=== PATIENT | female | born 1955 | race Caucasian/White ===

== ENCOUNTER 2021-12-07 06:25 | Day surgery (SDC) | payer OTHER ==
[2021-12-07] MEDS ORDERED: CLINDAMYCIN PHOSPHATE 900 MG in NA CHLORIDE 0.9% 50 ML IV SCH (06:30)
[2021-12-07] MEDS ORDERED: NA CHLORIDE 0.9% IV SCH (06:30)
[2021-12-07] MEDS ORDERED: CEFAZOLIN 1 GM in NA CHLORIDE 0.9% 50 ML IVPB SCH (06:30)
[2021-12-07] MEDS ORDERED: CLINDAMYCIN PHOSPHATE IV SCH (06:30)
[2021-12-07] MEDS ORDERED: Ringers Lactate 1,000 ML IV ONE (06:51)
[2021-12-07] MEDS ORDERED: MIDAZOLAM HCL 2 MG/2 ML INJ ONE (07:10)
[2021-12-07] MEDS ORDERED: propofoL 200 MG/20 ML VIAL IV ONE (07:10)
[2021-12-07] MEDS ORDERED: FENTANYL CITR 100 MCG/2 ML ONE (07:10)
[2021-12-07] MEDS ORDERED: LIDOCAINE 2% MPF 5 ML VIAL ONE (07:11)
[2021-12-07] MEDS ORDERED: ONDANSETRON 4 MG/2 ML VIAL ONE (07:11)
[2021-12-07] MEDS ORDERED: dexAMETHasone 10 MG/ML VIAL ONE (07:11)
--- NOTE | 2021-12-07 07:47 | EKG ---
Test Date: 2021-12-06 Test Time: 13:13:10 Flat Breakdown Processor: YASMINE MEASUREMENT RESULTS: Intervals: Rate: 66 TX: 166 QRSD: 60 QT: 414 QTc: 434 [place]: P: -9 TX: 166 QRS: 37 T: 57 INTERPRETIVE STATEMENTS: Normal sinus rhythm Low voltage QRS Borderline ECG Compared to ECG 09/29/2007 23:05:26 Low QRS voltage now present Electronically Signed On 12-07-21 07:46:06 CDT by Abram Thompson
[2021-12-07] MEDS: LIDOCAINE 1% W/EPI 1:100,000 10 ML VIAL ONE ×2 (08:03→08:14)
[2021-12-07] MEDS ORDERED: EPHEDRINE SULF 50 MG/ML VIAL ONE (08:11)
[2021-12-07] MEDS: BUPIVACAINE 0.5% PF 10 ML VIAL ONE ×2 (08:14→08:30)
[2021-12-07] MEDS ORDERED: KETOROLAC 30 MG/ML INJ ONE (08:49)
--- NOTE | 2021-12-07 08:52 | P.BOP ---
Preoperative diagnosis: NUB R ear Postoperative diagnosis: Dilated Pore of Pamela Primary procedure: Excision benign skin lesion, path pending Secondary procedure: full thickness skin graft Bedspread Cutter Hand: NONE,NONE Estimated blood loss: 5ml Specimen: right external ear Findings: EUA consistant with dilated pore of Pamela Anesthesia: General Complications: None Implants: none Fluids & blood products: crystalloid 400ml Transferred to: Recovery Room Condition: Good
[2021-12-07] MEDS: HYDROMORPHONE HCL 1 MG/ML INJ ONE ×2 (09:06→09:12)
[2021-12-07 09:38] VITALS: BP 126/54; TEMP 97.1; O2SAT 96
--- NOTE | 2021-12-07 11:51 | P.OP ---
Commutator Inspector: NONE,NONE Preoperative diagnosis: Neoplasm uncertain behavior, skin right ear Postoperative diagnosis: Dilated pore of Pamela Primary procedure: Excision benign skin lesion, path pending Secondary procedure: full thickness skin graft Anesthesia: General via LMA Estimated blood loss: 5 mL Specimen: Right ear helix Findings: EUA consistant with dilated pore of Pamela Operative Technique: The patient was brought to the operating room. She is placed under general anesthesia via LMA. The skin of the ear, face, and neck on the right side was cleaned and prepped with Betadine and draped in a sterile fashion. Examination of the ear under anesthesia allowed increased visualization and manipulation. There was an area of darkness in the center of the raised 1 cm region, located on the scapha of the right external ear. Office examination was suggestive of some crusting overlying an ulceration with clinical suspicion for a rapidly growing malignancy. However during this examination I was able to carefully elevate part of this dark area and the clinical diagnosis was more suggestive of a dilated pore of Pamela. Based on the size, proceeding with excision and reconstruction of the area was indicated in light of the patient's significant pain and rapid growth. The area around the lesion was injected with 1% lidocai ne with epinephrine. The forceps were used to debride portion of the contents of the dilated pore. The skin overlying this dilated patient portion was extremely thin and resection was indicated. A 15 blade scalpel and needlepoint Bovie electrocautery were used to excise the area without significant margin and the skin specimen was sent to pathology for permanent section only. The edges of the wound were carefully cleaned from some granulated appearing tissue. The defect was 1.2 x 0.9 cm and included full-thickness of the skin with exposure of the perichondrium and a small area of exposed cartilage. The skin around the area was undermined but there was not sufficient skin to allow for primary closure. After careful examination of the surrounding area, decision was made to use a full-thickness skin graft from the preauricular crease. The planned excision area was injected with 0.5% plain Marcaine and a 1.1 x 2.5 vertical fusiform excision was made. A full-thickness skin graft was harvested and set aside. The donor site was treated with needlepoint electrocautery to achieve hemostasis and the skin edges were elevated approximately 1 cm anteriorly and about 3 to 5 mm posteriorly with elevation limited by the anatomy of the ear. The donor site was then closed in a primary fashion using running 5-0 fast absorbing gut. The skin graft was then cut to the appropriate size and applied to the scapha of the right ear. The graft was secured using four-point interrupted 3-0 silk sutures at 12, 3, 6, and 9:00. A Xeroform gauze was formed into an appropriate size bolster and was applied to the site, and was secured using the silk sutures. The surgical area was cleaned and dried. A small amount of triple antibiotic ointment was applied to the right preauricular incision/donor site. The patient was then returned to anesthesia for awakening and extubation in the operating room which proceeded without difficulty. Complications: None Implants: None Fluids & blood products: See anesthesia record Transferred to: Recovery Room Condition: Good
== END 2021-12-07 10:10 | disposition home or self-care (01) ==
LOC: OR 06:25
PROVIDERS: ATTEND Otolaryngology
PROC: 0JB00ZZ Excision of Scalp Subcutaneous Tissue and Fascia, Open Approach (ICD-10-PCS; principal; 2021-12-07 07:45)
DX: C44.222 Squamous cell carcinoma of skin of right ear and external auricular canal (principal); Z20.822 Contact with and (suspected) exposure to COVID-19
CPT/HCPCS: 93005; 88305; 11642; 15260; U0003; J2704; J2250; J3010; J1100; J1170; J7120; J2405; S0077

== ENCOUNTER 2022-12-30 07:31 | Day surgery (SDC) | payer OTHER ==
[2022-12-30 08:21] LABS: Absolute Lymphocytes (CBC) 1.4 K/uL (0.7-4.9); Hematocrit 43.8 % (36.0-45.0); Lymphocytes % 28.5 % (15.3-44.8); MCV 96.5 fL (80-100); MPV 8.6 fL (7.6-11.3); RBC Red Blood Cell Count 4.54 M/uL (3.86-4.86)
[2022-12-30 08:33] LABS: Potassium 3.7 mEq/L (3.5-5.1)
[2022-12-30] MEDS ORDERED: Ringers Lactate 1,000 ML IV ONE (08:40)
[2022-12-30] MEDS ORDERED: CEFAZOLIN SODIUM 1 GM/VIAL ONE (08:40)
--- NOTE | 2022-12-30 08:40 | RAD REPORT ---
EXAM DESCRIPTION: RAD - Chest Pa And Lat (2 Views) - 12/30/2022 8:33 am CLINICAL HISTORY: PREPROCEDURE SCREENING COMPARISON: CHEST PA AND LAT 2 VIEW dated 03/31/2012; CHEST PA AND LAT 2 VIEW dated 09/17/2010 FINDINGS: Lines: None. Lungs: No evidence of edema or pneumonia. Pleural: No significant pleural effusions or pneumothorax. Cardiac: The heart size is within normal limits. Mediastinum: Within normal limits. Bones: No acute fractures. Other: None IMPRESSION: No acute cardiopulmonary disease.
[2022-12-30] MEDS ORDERED: SCOPOLAMINE HYDROBROMIDE PATCH TD ONE (09:35)
[2022-12-30] MEDS ORDERED: BACITRACIN OINTMENT 14 GM TUBE TOP ONE (09:38)
[2022-12-30] MEDS ORDERED: LIDOCAINE 1% W/EPI 1:100,000 10 ML VIAL ONE (09:38)
[2022-12-30] MEDS ORDERED: MIDAZOLAM HCL 2 MG/2 ML INJ ONE (10:02)
[2022-12-30] MEDS ORDERED: LIDOCAINE 2% MPF 5 ML VIAL ONE (10:02)
[2022-12-30] MEDS ORDERED: propofoL 200 MG/20 ML VIAL IV ONE (10:02)
[2022-12-30] MEDS ORDERED: ONDANSETRON 4 MG/2 ML VIAL ONE (10:02)
[2022-12-30] MEDS ORDERED: FENTANYL CITR 100 MCG/2 ML ONE (10:02)
[2022-12-30] MEDS ORDERED: TRAMADOL HCL 50 MG TAB PO ONE (11:23)
[2022-12-30 11:27] VITALS: O2SAT 99
[2022-12-30] MEDS ORDERED: KETOROLAC 30 MG/ML INJ ONE (11:48)
--- NOTE | 2022-12-30 12:37 | EKG ---
Test Date: 2022-12-30 Test Time: 08:14:43 Cloth Printing Inspector: MAXI MEASUREMENT RESULTS: Intervals: Rate: 66 AR: 180 QRSD: 66 QT: 412 QTc: 431 [place]: P: 71 AR: 180 QRS: 20 T: 66 INTERPRETIVE STATEMENTS: Normal sinus rhythm with sinus arrhythmia Low voltage QRS Cannot rule out Anterior infarct, age undetermined Abnormal ECG Compared to ECG 12/06/2021 13:13:10 Myocardial infarct finding now present Electronically Signed On 12-30-22 12:36:59 CDT by Abram Thompson
[2022-12-30 12:49] VITALS: BP 132/58; TEMP 98.5
--- NOTE | 2023-01-01 10:29 | P.BOP ---
Preoperative diagnosis: hyperpigmentated ulcerated parietal scalp mass 2.5cm x 2.5 cm Postoperative diagnosis: same Primary procedure: Excisional biopsy of hyperpigmentated ulcerated parietal scalp mass Secondary procedure: 2.5cm x 2.5 cm Marine Equipment Sales Engineer: AMAURY BAILEY (INTERVENTIONAL NEURORADIOLOGIST) Estimated blood loss: <10cc Specimen: mass Findings: mass Anesthesia: General Complications: None Transferred to: Recovery Room Condition: Good
--- NOTE | 2023-01-01 14:12 | EKG ---
Test Date: 2022-12-30 Test Time: 08:15:27 Imaging Science Professor: MAXI MEASUREMENT RESULTS: Intervals: Rate: 69 ME: 194 QRSD: 58 QT: 400 QTc: 428 [place]: P: 68 ME: 194 QRS: 21 T: 62 INTERPRETIVE STATEMENTS: Normal sinus rhythm Low voltage QRS Cannot rule out Anteroseptal infarct, age undetermined Abnormal ECG Compared to ECG 12/30/2022 08:14:43 Sinus arrhythmia no longer present Myocardial infarct finding still present Electronically Signed On 01-01-23 14:09:24 CDT by Pedro Bustillo
--- NOTE | 2023-01-01 18:03 | DS ---
Date of Discharge: 12/30/2022 Diagnosis: Hyperpigmented ulcerated parietal scalp subcutaneous mass 2.5 cm. Procedure: Excisional biopsy of hyperpigmented subcutaneous ulcerated parietal scalp mass. Disposition: Home. Activity: As tolerated. No heavy lifting. Plan: Follow up in my office in 1 week. Call for appointment at [phone]. Keep area dry until she see us once again. Keep area dry for 48 hours and then follow up in office in a week. MANUEL/DWAYNE Voice ID: [id number] Report ID: [id number]
--- NOTE | 2023-01-01 18:03 | OP ---
Date of Procedure: 12/30/2022 Surgeon: Davi Maldonado MD Materials Handling Coordinator: Carolin Polo. Preoperative Diagnosis: Hyperpigmented ulcerated parietal scalp mass 2.5 cm x 2.5 cm. Postoperative Diagnosis: Hyperpigmented ulcerated parietal scalp mass 2.5 cm x 2.5 cm. Procedure: Excisional biopsy of hyperpigmented ulcerated parietal scalp mass, 2.5 cm x 2.5 cm Specimen: Mass. Anesthesia: General plus local. Complications: None. Indication: This is the case of a female, who comes to us with a parietal mass going to the scalp ar ea and going to the skin causing some alopecia, some ulceration, and concern for cancer. The primary doctor and the patient want that excised, so benefits, alternatives and risks of excision fully expl ained, which include, but not limited to infection, bleeding, damage to adjacent structures, anesthes ia complication, recurrence, PR, and even . She also understands risks of alopecia and also und erstands that we might not be able to close the defect completely due to how large area that is in th at location. She understood, signed a consent. The area was marked by me and the patient in the hol ding room. Procedure In Detail: The patient was brought to the operating room, placed in supine position. Anes thesia was done without complication. Scalp area was prepped and draped in the usual sterile fashion . A wedge incision was made in the skin include gross negative margins. The incision was carried al l the way down to the galea of the scalp region. The mass was completely excised. The area was irri gated. Hemostasis was obtained. Then, we proceeded to close it by combination of a 2-0 nylon in a f [id number] fashion and suture mattress fashion. The patient tolerated the procedure well. The p atient was sent to recovery in stable condition. MANUEL/DWAYNE Voice ID: [id number] Report ID: [id number]
== END 2022-12-30 12:43 | disposition home or self-care (01) ==
LOC: OR 07:31 → EDBD 10:45 → OR 12:43
PROVIDERS: ATTEND Surgery
PROC: 0HB0XZZ Excision of Scalp Skin, External Approach (ICD-10-PCS; principal; 2022-12-30 10:45)
DX: L82.1 Other seborrheic keratosis (principal)
CPT/HCPCS: 93005; 85025; 80048; 36415; 88305; 71046; 11423; J2704; J2001; J2250; J3010; J2405; J7120; J0690

== ENCOUNTER 2023-01-14 09:39 | Emergency (ER) | payer OTHER ==
--- OUTSIDE RECORDS SUMMARY | 2023-01-14 09:42 | XMS REPORT | Continuity of Care Document ---
:1955 Author Organization [facility] t Address [address] [place] [address] Care Team Providers Name Role Phone Gilbert Thakkar Primary Care Physician Miladis Almanza MD Attending Clinician Nurse, [facility] Attending Clinician Unavailable Doctor Unassigned, [place] Attending Clinician Unavailable Payers Payer Name Policy Type Policy Number Effective Date Expiration Date S ource Problems Condition Condition Condition Status Onset Resolution Last Treating Co mments Source Name Details Category Date Date Treatment Clinician Date Dysuria Dysuria Disease Active Overview: Univ ers 6-10 Formattin ity of 00:00: g of this note Medical might be Branch different from the original. Nurse visit Hypothyroi Hypothyroi Disease Active U nivers d d 3-11 ity of 00:00: Medical Branch Generalize Generalize Disease Active U nivers d anxiety d anxiety 3-11 ity of disorder disorder 00:00: [place] 00 Medical Branch Allergies, Adverse Reactions, Alerts Allergy Allergy Status Severity Reaction(s) Onset Inactive Treating Comm ents Source Name Type Date Date Clinician Julissa Gibbons Active Palpitations Excessiv e Univers ty to 3-11 sweating, ity of adverse 00:00: feels [place] reaction 00 like Medical s she's Branch going to pass out Social History Social Habit Start Date Stop Date Quantity Comments Source History of tobacco Cigarette Smoker University of use [place] [facility] History [facility] University o f Alcohol Frequency [place] M edical Branch History [facility] University o f Alcohol Std Drinks [place] [facility] History [facility] University o f Alcohol Binge [place] [facility] Exposure to 2022-01-29 2022-02-08 Not sure University SARS-CoV-2 (event) 00:00:00 14:31:00 [facility] Alcohol intake 2021-12-31 2021-12-31 Current drinker Unive rsity of 00:00:00 00:00:00 of alcohol [facility] [place] (finding) Branch Cigarettes smoked 2021-11-09 2021-11-09 Univers ity of current (pack per 00:00:00 00:00:00 [facility] ) - Reported Branch Cigarette 2021-11-09 2021-11-09 University of pack-years 00:00:00 00:00:00 [facility] Tobacco use and 2021-11-09 2021-11-09 Never used Universit y of exposure 00:00:00 00:00:00 [facility] Alcohol Comment 2021-11-09 2021-11-09 occational Universit y of 00:00:00 00:00:00 [facility] Sex [birth year] Universit y of 00:00:00 00:00:00 [facility] Smoking Status Start Date Stop Date Source Current every day smoker 2021-11-09 00:00:00 Uni versity of [facility] Medications Ordered Filled Start Stop Current Ordering Indication Dosage Frequency Signature Comments Components Source Medication Medication Date Date Medication? Clinician (SIG) Name Name sulfamethox 2021- No [id number] 1{tbl} Take 1 Univers azole-trime 6-13 06-21 tablet by it y oprim 00:00: 04:59 mouth 2 [place] 800-160 mg 00 :00 (two) Medical per tablet times Branch daily for 7 days. sulfamethox 2021- No [id number] 1{tbl} Take 1 Univers azole-trime 6-13 06-21 tablet by it y of oprim 00:00: 04:59 mouth 2 [place] 800-160 mg 00 :00 (two) Medical per tablet times Branch daily for 7 days. Mth-Me 2021- No [id number] 1{capsu Take 1 Univers Blue-Sod 6-10 07-11 le} capsule by ity of Phos-PhSal- 00:00: 04:59 [place] Hyo 00 :00 every 8 Medical (URIBEL) (eight) Branch 118-10-40.8 hours as -36 mg needed for capsule Other (bladder spasms) for up to 30 days. [facility] 2021- No [id number] 1{capsu Take 1 Univers Blue-Sod 6-10 07-11 le} capsule by ity of Phos-PhSal- 00:00: 04:59 [place] 00 :00 every 8 Medical (URIBEL) (eight) Branch 118-10-40.8 hours as -36 mg needed for capsule Other (bladder spasms) for up to 30 days. [facility] 2021- No [id number] 1{capsu Take 1 Univers Blue-Sod 6-10 07-11 le} capsule by ity of Phos-PhSal- 00:00: 04:59 [place] 00 :00 every 8 Medical (URIBEL) (eight) Branch 118-10-40.8 hours as -36 mg needed for capsule Other (bladder spasms) for up to 30 days. estradioL Yes [id number] Apply 1g Univers (ESTRACE) 3-11 vaginally ity o f 0.01 % (0.1 00:00: at bedtime [place] mg/gram) 00 every Medical vaginal night for Branch cream 2 weeks and then apply 1g vaginally at bedtime 3 times per week ( dn ida) estradioL Yes [id number] Apply 1g Univers (ESTRACE) 3-11 vaginally ity o f 0.01 % (0.1 00:00: at bedtime [place] mg/gram) 00 every Medical vaginal night for Branch cream 2 weeks and then apply 1g vaginally at bedtime 3 times per week ( dn ida) estradioL Yes [id number] Apply 1g Univers (ESTRACE) 3-11 vaginally ity o f 0.01 % (0.1 00:00: at bedtime [place] mg/gram) 00 every Medical vaginal night for Branch cream 2 weeks and then apply 1g vaginally at bedtime 3 times per week ( dn ida) ALPRAZolam Yes 1mg Take 1 mg Un yisel 1 mg tablet 2-20 by mouth ity of 00:00: at [place] [address] bedtime. Medical Branch ALPRAZolam Yes 1mg Take 1 mg Un yisel 1 mg tablet 2-20 by mouth ity of 00:00: at [place] [address] bedtime. Medical Branch ALPRAZolam Yes 1mg Take 1 mg Un yisel 1 mg tablet 2-20 by mouth ity of 00:00: at [place] [address] bedtime. Medical Branch nitrofurant Yes 100mg Take 100 U nivers oin 100 mg 2-09 mg by ity of capsule 00:00: mouth [place] 00 daily. Medical Branch nitrofurant 0 Yes 100mg Take 100 U nivers oin 100 mg 2-09 mg by ity of capsule 00:00: mouth [place] 00 daily. Medical Branch nitrofurant Yes 100mg Take 100 U nivers oin 100 mg 2-09 mg by ity of capsule 00:00: mouth [place] 00 daily. Medical Branch pravastatin Yes 40mg Take 40 mg Univers 40 mg 1-19 by mouth ity of tablet 00:00: every [place] 00 morning. Medical Branch pravastatin 0 Yes 40mg Take 40 mg Univers 40 mg 1-19 by mouth ity of tablet 00:00: every [place] 00 morning. Medical Branch pravastatin 0 Yes 40mg Take 40 mg Univers 40 mg 1-19 by mouth ity of tablet 00:00: every [place] 00 morning. Medical Branch levothyroxi Yes 25ug Take 25 Uni vers ne 25 mcg 1-12 mcg by ity of tablet 00:00: mouth [place] 00 every Medical morning. Branch levothyroxi Yes 25ug Take 25 Uni vers ne 25 mcg 1-12 mcg by ity of tablet 00:00: mouth [place] 00 every Medical morning. Branch levothyroxi 0 Yes 25ug Take 25 Uni vers ne 25 mcg 1-12 mcg by ity of tablet 00:00: mouth [place] 00 every Medical morning. Branch Vital Signs Vital Name Observation Time Observation Value Comments Source Body weight 2022-02-08 20:25:00 56.7 kg [facility] BMI 2022-02-08 20:25:00 24.41 kg/m2 [facility] Systolic blood 2022-02-08 20:25:00 108 mm[Hg] Univer sity of pressure [facility] Diastolic blood 2022-02-08 20:25:00 70 mm[Hg] Unive rsity of pressure [facility] Heart rate 2022-02-08 20:25:00 80 /min Universi ty [facility] Body temperature 2022-02-08 20:25:00 36.89 Yumiko [facility] Respiratory rate 2022-02-08 20:25:00 18 /min [facility] Body height 2022-02-08 20:25:00 152.4 cm Universi ty [facility] Procedures Procedure Date / Time Performed Performing Clinician Sourc e POCT URINALYSIS W/O 2022-02-08 00:00:00 Miladis Almanza [facility] SPECIFIC GRAVITY [facility] Encounters Start End Encounter Admission Attending Care Care Encounter Source Date/Time Date/Time Type Type Clinicians Facility Department ID 2022-02-11 2022-02-11 Refill [facility] [id number] Univers 00:00:00 00:00:00 Miladis [facility] [id number] it y [place] [id number] [facility] 098 Branch OFFICE BUILDING 2022-02-11 2022-02-11 Telephone [facility] [id number] Univers 00:00:00 00:00:00 Miladis RAMON [id number] i ty [facility] 4.2.[place] [id number] Mo dical NAL 134 Branch BUILDING 2022-02-08 2022-02-08 Outpatient R [facility] [id number] Univers 15:00:00 15:08:39 MILADIS garza [facility] 2022-02-08 2022-02-08 Office Nurse, [facility] [id number] Univers 15:00:00 15:08:39 Visit Miladis Almanza [id number] ity of [facility] [id number] [id number] Mo dical NAL 134 [facility] 2022-01-07 2022-01-07 Telemedici [facility] [id number] Univers 11:30:00 12:00:00 ne Visit Miladis RAMON [id number] ity of [place] 4[place]2.[place].2.[place] [id number] [facility] 098 [facility] 2022-01-07 2022-01-07 Outpatient R [facility] [id number] Univers 11:30:00 11:30:00 [facility] 2022-01-07 2022-01-07 Outpatient R [facility] [id number] Univers 11:30:00 11:30:00 [facility] 2021-12-31 2021-12-31 Outpatient R [facility] [id number] Univers 13:00:00 13:48:58 [facility] 2021-12-31 2021-12-31 Office [facility] [id number] Univers 13:00:00 13:48:58 Visit Miladis RAMON 350.1.13.10 i ty of [place] 4[place]2.[place]2.[place] [id number] [address] 2021-12-07 2021-12-07 Outpatient R [facility] [id number] Univers 15:00:00 15:00:00 MILADIS [facility] 2021-12-05 2021-12-05 Orders Doctor DANE [id number] Univers 00:00:00 00:00:00 Only Unassigned, SHERWIN 350.1.13.10 ity of [place] [facility] 4.2.7.2.686 Pablo as [id number] [address] 2021-11-09 2021-11-09 Outpatient R [facility] [id number] Univers 09:00:00 09:49:00 [facility] Results Test Description Test Time Test Comments Results Result Comments Source POCT URINALYSIS W/O SPECIFIC GRAVITY 2022-02-08 20:24:00 Test Item Value Reference Range Interpretation Comme nts POCT PH U (test code = 3254) 7 mg/dl 5-8 POCT U LEUK EST (test code = 3263) negative Negative - Negative POCT U NIT (test code = 3262) negative Negative - Negative POCT U PROT (test code = 3259) negaitve Negative - Negative POCT U GLU (test code = 3256) negaitve Negative - Negative POCT U KETONE (test code = 3258) negative Negative - Negative POCT U BLD (test code = 3257) trace Negative - Negative [facility] [place] [facility] MARTHA CAD [id number] 14:46:25Name: Remedios : 1955 Sex: F - SCR MAMM BILATERAL MARTHA CAD DIGITALBILATERAL DIGITAL SCREENING MAMMOGRAM 3D/2D WITH CAD: 08/08/2020CLINICAL: Asymptomatic. Digital breast tomosynthesis was performed in addition to routine CC and MLO views. Current mammographic images were evaluated by either a [employer] M-Vu or a [employer] ImageChecker CAD (computer aided detection system).Comparison is made to exams dated 01/21/2019 mammogram, 11/25/2016 mammogram - [facility], and 12/13/2013 mammogram - [facility]. There are scattered fibroglandulartissues in both breasts. There is a benign density in the right breast. No suspicious mass, architectural distortion, malignant type calcification, or lymph node abnormality detected. Breast architecture is stable compared to prior exams.IMPRESSION: BENIGNThere is no mammographic evidence of malignancy. Resume annual screening mammography in one year. Charlie Palomino M.D. ss/penrad:08/08/2020 14:46:25 Line Ordering Clinician: Ebony BURCIAGA, [facility]-FWletter sent: BIRADS 1-2 NormalMammogram BI-RADS: 2 BenignSCR MAMM BILATERAL MARTHA CAD [id number] 15:50:13 - SCR MAMM BILATERAL MARTHA CAD DIGITALBILATERAL DIGITAL SCREENING MAMMOGRAM 3D/2D WITH CAD: 01/21/2019CLINICAL: Asymptomatic. Digital breast tomosynthesis was performed in addition to routine CC and MLOviews. Current mammographic images were evaluated by either a [employer] M-Vu or a [employer] ImageChecker CAD (computer aided detection system). Comparison is made to exams dated 11/25/2016 mammogram - [facility] and 12/13/2013 mammogram - [facility]. There are scattered fibroglandular tissues in both breasts. A radiopaque marker was placed on a scar on the left breast.There is a stable benign-appearing asymmetry in the anterior, inferior, right breast. No suspicious new mass, architectural distortion, malignant type calcification, or lymph node abnormality detected. Breast architecture is stable compared to prior exams.IMPRESSION: BENIGNThere is no mammographic evidence of malignancy. Resume annual screening mammography in one year. Lonny Andrew M.D. rb/:01/22/2019 15:50:13 Line Ordering Clinician: Lauren Duran MM, [facility] sent: BIRADS1-2 Normal Mammogram BI-RADS: 2 Benign
[2023-01-14 10:07] LABS: Absolute Lymphocytes (CBC) 1.5 K/uL (0.7-4.9); Lymphocytes % 27.1 % (15.3-44.8); MPV 8.3 fL (7.6-11.3); RBC Red Blood Cell Count 4.48 M/uL (3.86-4.86)
[2023-01-14] MEDS ORDERED: ASPIRIN 81 MG CHEWABLE TABLET ONE (10:07)
[2023-01-14 10:25] LABS: Albumin 3.7 g/dL (3.4-5.0); Bilirubin Direct 0.1 mg/dL (0-0.2); Bilirubin Indirect, Calculated 0.4 mg/dL (0.2-0.8); Bilirubin Total 0.5 mg/dL (0.2-1.0); Magnesium 2.4 mg/dL (1.6-2.4); Protein, Total 6.7 g/dL (6.4-8.2); Troponin High Sensitivity 3.8 pg/mL (<58.9)
--- NOTE | 2023-01-14 11:31 | RAD REPORT ---
EXAM DESCRIPTION: RADChest Single View01/14/2023 10:23 am CLINICAL HISTORY: CHEST PAIN COMPARISON: Chest Pa And Lat (2 Views) dated 12/30/2022; CHEST PA AND LAT 2 VIEW dated 03/31/2012; CHES T PA AND LAT 2 VIEW dated 09/17/2010 TECHNIQUE: Portable AP view of the chest. FINDINGS: The lungs are clear. Left basilar atelectatic changes. No pneumothorax or effusion. The c ardiomediastinal contours are unremarkable. IMPRESSION: No acute cardiopulmonary process.
--- NOTE | 2023-01-14 11:43 | ER ---
Nurse's Notes [facility] Name: Remedios Kapadia Age: 67 yrs Sex: Female : 1955 Arrival Date: 01/14/2023 Time: 09:39 Bed 2 Private MD: Diagnosis: Palpitations Presentation: 01/14 09:45 Chief complaint: Patient states: chest palpitations. Coronavirus screen: Vaccine db status: Patient reports receiving the 2nd dose of the covid vaccine. Client denies travel out of the [place] in the last 14 days. At this time, the client does not indicate any symptoms associated with coronavirus-19. Ebola Screen: Patient negative for fever greater than or equal to 101.5 degrees Fahrenheit, and additional compatible Ebola Virus Disease symptoms Patient denies exposure to infectious person. Patient denies travel to an Ebola-affected area in the 21 days before illness onset. No symptoms or risks identified at this time. Initial Sepsis Screen: Does the patient meet any 2 criteria? No. Patient's initial sepsis screen is negative. Does the patient have a suspected source of infection? No. Patient's initial sepsis screen is negative. Risk Assessment: Do you want to hurt yourself or someone else? Patient reports no desire to harm self or others. Onset of symptoms was January 14, 2023. 09:45 Method Of Arrival: Ambulatory db 09:45 Acuity: RADHA 2 db Triage Assessment: 09:45 General: Appears in no apparent distress. comfortable, Behavior is calm, cooperative. db Pain: Complains of pain in chest. Cardiovascular: Reports fatigue, palpitations. Historical: - Allergies: 10:26 Codeine; db - PMHx: 10:26 Hypothyroidism; Gastroesophageal reflux disease; db - Immunization history:: Adult Immunizations unknown, Client reports receiving the 2nd dose of the Covid vaccine. - Social history:: Smoking status: Patient denies any tobacco usage or history of. Screenin:29 [facility] ED Fall Risk Assessment (Adult) History of falling in the last 3 months, db including since admission No falls in past 3 months (0 pts) Confusion or Disorientation No (0 pts) Intoxicated or Sedated No (0 pts) Impaired Gait No (0 pts) Mobility Assist Device Used No (0 pt) Altered Elimination No (0 pt) Score/Fall Risk Level 0 - 2 = Low Risk Oriented to surroundings, Maintained a safe environment. Abuse screen: Denies threats or abuse. Denies injuries from another. Nutritional screening: No deficits noted. Tuberculosis screening: No symptoms or risk factors identified. Assessment: 09:45 Reassessment: see triage for initial assessment. db 10:30 Reassessment: Patient appears in no apparent distress at this time. Patient and/or db family updated on plan of care and expected duration. Pain level reassessed. Patient is alert, oriented x 3, equal unlabored respirations, skin warm/dry/pink. Patient states feeling better. Patient states symptoms have improved. General: Appears in no apparent distress. comfortable, Behavior is calm, cooperative. 11:30 Reassessment: Patient appears in no apparent distress at this time. Patient and/or db family updated on plan of care and expected duration. Pain level reassessed. Patient is alert, oriented x 3, equal unlabored respirations, skin warm/dry/pink. General: Appears in no apparent distress. Neuro: Level of Consciousness is awake, alert, obeys commands, Oriented to person, place, time, situation. 11:51 Pain: Pain does not radiate. ap3 11:51 Pain: Pain began. ap3 Vital Signs: 09:45 BP 115 / 75; Pulse 76; Resp 14; Temp 98.1(O); Pulse Ox 97% on R/A; Weight 55.79 kg; db Height 5 ft. 0 in. ; 11:21 BP 105 / 66; Pulse 67; Pulse Ox 98% on R/A; ap3 09:45 Body Mass Index 24.02 (55.79 kg, 152.4 cm) db ED Course: 09:40 Patient arrived in ED. rg4 09:45 Dejon Atkins DO is Attending Physician. ms3 09:45 Arm band placed on Patient placed in an exam room. db 09:45 Patient has correct armband on for positive identification. Bed in low position. Call ap3 light in reach. monitor and storage bin tender on. Pulse ox on. NIBP on. 09:57 Inserted saline lock: 20 gauge in left antecubital area, using aseptic technique. Blood db collected. Patient maintains SpO2 saturation greater than 95% on room air. 10:20 Michelle Turner, RN is Primary Nurse. db 10:24 XRAY Chest (1 view) In Process Unspecified. EDMS 10:26 Triage completed. db 11:42 Abram Thompson MD is Referral Physician. ms3 11:50 No provider procedures requiring assistance completed. IV discontinued, intact, ap3 bleeding controlled, No redness/swelling at site. Pressure dressing applied. Administered Medications: 10:00 Drug: Aspirin PO Chewable Tablet 324 mg Route: PO; db 11:52 Follow up: Response: No adverse reaction ap3 Medication: 11:51 VIS not applicable for this client. ap3 Outcome: 11:42 Discharge ordered by MD. ms3 11:51 Discharged to home ambulatory, with family. ap3 11:51 Condition: good 11:51 Discharge instructions given to patient, Instructed on discharge instructions, follow up and referral plans. Demonstrated understanding of instructions, follow-up care. 11:52 Patient left the ED. ap3 Signatures: Dispatcher [employer] ALVAREZMS Stephany Narvaez rg4 Taisha Abraham, RN RN ap3 Dejon Atkins DO DO ms3 Michelle Turner, RN RN db
--- NOTE | 2023-01-14 11:43 | EDPHYS ---
Physician Documentation [facility] Name: Remedios Kapadia Age: 67 yrs Sex: Female : 1955 Arrival Date: 01/14/2023 Time: 09:39 Bed 2 Private MD: ED Physician Dejon Atkins HPI: 01/14 10:09 This 67 yrs old Female presents to ER via Unassigned with complaints of Chest Pain, ms3 Palpitations. 10:09 67-year-old female with past medical history of hypothyroidism, hyperlipidemia, GERD ms3 presents for rapid heartbeat and heavy discomfort in her chest that began last night. Patient states her discomfort is 7/10. Patient denies alleviating or inciting factors. Patient denies nausea, vomiting, shortness of breath. Patient endorses lightheadedness.. Historical: - Allergies: 10:26 Codeine; db - PMHx: 10:26 Hypothyroidism; Gastroesophageal reflux disease; db - Immunization history:: Adult Immunizations unknown, Client reports receiving the 2nd dose of the Covid vaccine. - Social history:: Smoking status: Patient denies any tobacco usage or history of. ROS: 10:09 Constitutional: Negative for fever, and chills. Neck: Negative for injury, pain, and ms3 swelling, Respiratory: Negative for shortness of breath, cough, wheezing, and pleuritic chest pain, Abdomen/GI: Negative for abdominal pain, nausea, vomiting, diarrhea, and constipation, MS/Extremity: Negative for injury and deformity, Skin: Negative for injury, rash, and discoloration. 10:09 Cardiovascular: Positive for chest pain, palpitations. 10:09 Neuro: Positive for Lightheadedness. 10:09 All other systems are negative. Exam: 10:09 Constitutional: This is a well developed, well nourished patient who is awake, alert, ms3 and in no acute distress. Head/Face: Normocephalic, atraumatic. Chest/axilla: Normal chest wall appearance and motion. Nontender with no deformity. Cardiovascular: Regular rate and rhythm with a normal S1 and S2. No gallops, murmurs, or rubs. Normal PMI, no JVD. No pulse deficits. Respiratory: Lungs have equal breath sounds bilaterally, clear to auscultation and percussion. No rales, rhonchi or wheezes noted. No increased work of breathing, no retractions or nasal flaring. Abdomen/GI: Soft, non-tender, with normal bowel sounds. No distension or tympany. No guarding or rebound. No evidence of tenderness throughout. Skin: Warm, dry with normal turgor. Normal color with no rashes, no lesions, and no evidence of cellulitis. MS/ Extremity: Pulses equal, no cyanosis. Neurovascular intact. Full, normal range of motion. Psych: Awake, alert, with orientation to person, place and time. Behavior, mood, and affect are within normal limits. 10:14 ECG was reviewed by the Attending Physician. ms3 Vital Signs: 09:45 BP 115 / 75; Pulse 76; Resp 14; Temp 98.1(O); Pulse Ox 97% on R/A; Weight 55.79 kg; db Height 5 ft. 0 in. ; 11:21 BP 105 / 66; Pulse 67; Pulse Ox 98% on R/A; ap3 09:45 Body Mass Index 24.02 (55.79 kg, 152.4 cm) db MDM: 09:54 Patient medically screened. ms3 10:09 Differential diagnosis: abnormal EKG, acute myocardial infarction, anxiety, pneumonia. ms3 The patient was given aspirin in the Emergency Department. 11:39 HEART Score: History: Slightly Suspicious (0), ECG: Normal (0), Age: > or = 65 years ms3 (2), Risk Factors: 1 or 2 risk factors (1), [Active Smoker] Troponin: < or = 1 x Normal Limit (0), Total Score = 3. Data reviewed: vital signs, nurses notes, and as a result, I will discharge patient. I considered the following discharge prescriptions or medication management in the emergency department Medications were administered in the Emergency Department. See MAR. Independent interpretation of the following test(s) in the Emergency Department EKG: See my EKG interpretation above dimpling machine operator: rate is 69 beats/min, Rhythm is normal sinus rhythm, regular, with no ectopy, Interpretation: normal rate, normal rhythm. Counseling: I had a detailed discussion with the patient and/or guardian regarding: the historical points, exam findings, and any diagnostic results supporting the discharge/admit diagnosis, lab results, radiology results, the need for outpatient follow up, to return to the emergency department if symptoms worsen or persist or if there are any questions or concerns that arise at home. ED course: Discussed labs, EKG, chest x-ray with patient and her . Patient to follow-up with Dr. Abrams in 1 to 2 days. Patient understands and agrees with plan. All questions were answered. Return precautions discussed include worsening symptoms, or any other concerns. On reevaluation patient is alert and oriented x4, no apparent distress, nontoxic-appearing, ambulatory in emergency department, speaking full sentences. 01/14 09:54 Order name: Basic Metabolic Panel; Complete Time: 11:07 ms3 01/14 09:54 Order name: CBC with Diff; Complete Time: 11:3 01/14 09:54 Order name: LFT's; Complete Time: 11: ms3 01/14 09:54 Order name: Magnesium; Complete Time: 11: ms3 01/14 09:54 Order name: Troponin HS; Complete Time: 11:07 ms3 01/14 09:54 Order name: XRAY Chest (1 view); Complete Time: 11:33 ms3 01/14 09:54 Order name: EKG; Complete Time: 09:55 ms3 01/14 09:54 Order name: Cardiac monitoring; Complete Time: 10:21 ms3 01/14 09:54 Order name: EKG - Nurse/Tech; Complete Time: 10:21 ms3 01/14 09:54 Order name: IV Saline Lock; Complete Time: 10:21 ms3 01/14 09:54 Order name: Labs collected and sent; Complete Time: 10:21 ms3 01/14 09:54 Order name: O2 Per Protocol; Complete Time: 10:21 ms3 01/14 09:54 Order name: O2 Sat Monitoring; Complete Time: 10:20 ms3 EC:14 Rate is 78 beats/min. Rhythm is regular. QRS [place] is Normal. [place] interval is normal. QRS ms3 interval is normal. Clinical impression: NSR w/ Non-specific ST/T Changes. Interpreted by me. Reviewed by me. Administered Medications: 10:00 Drug: Aspirin PO Chewable Tablet 324 mg Route: PO; db 11:52 Follow up: Response: No adverse reaction ap3 Disposition Summary: 01/14/23 11:42 Discharge Ordered Location: Home ms3 Condition: Stable ms3 Diagnosis - Palpitations ms3 Followup: ms3 - With: Abram Thompson MD - When: 1 - 2 days - Reason: Recheck today's complaints Discharge Instructions: - Discharge Summary Sheet ms3 - Palpitations ms3 Forms: - Medication Reconciliation Form ms3 - Thank You Letter ms3 - Antibiotic Education ms3 - Prescription Opioid Use ms3 Signatures: Dispatcher [employer] EDMS Dejon Atkins, DO ms3 Michelle Turner RN RN db Taisha Abraham RN ap3
[2023-01-14 11:57] VITALS: TEMP 98.1
[2023-01-14 11:59] VITALS: BP 105/66; O2SAT 98
--- NOTE | 2023-01-15 11:48 | EKG ---
Test Date: 2023-01-14 Test Time: 10:11:14 [employer] Operator Chief: THEODORE MEASUREMENT RESULTS: Intervals: Rate: 78 [place]: 182 QRSD: 70 QT: 382 QTc: 435 [place]: P: 68 [place]: 182 QRS: 46 T: 67 INTERPRETIVE STATEMENTS: Normal sinus rhythm Low voltage QRS Septal infarct, age undetermined Abnormal ECG Compared to ECG 12/30/2022 08:15:27 No significant changes Electronically Signed On 01-15-23 11:44:54 CDT by Abram Thompson
== END 2023-01-14 11:52 | disposition home or self-care (01) ==
LOC: ER 09:39
DX: R00.2 Palpitations (principal); K21.9 Gastro-esophageal reflux disease without esophagitis; E03.9 Hypothyroidism, unspecified; Z88.5 Allergy status to narcotic agent
CPT/HCPCS: 36415; 71045; 80048; 80076; 83735; 84484; 85025; 93005; 99285